=== PATIENT | male | born 1960 | race Caucasian/White ===

== ENCOUNTER → 2017-07-12 | Outpatient (CLI) | payer OTHER | LOC: M ADAMS 17:10 | PROVIDERS: ATTEND Physician Assistant | DX: M10.071 Idiopathic gout, right ankle and foot (principal) ==

== ENCOUNTER → 2018-03-25 | Outpatient (REF) | payer OTHER | LOC: M LAB REF 12:37 | DX: J02.9 Acute pharyngitis, unspecified (principal) | CPT/HCPCS: 87081 ==

== ENCOUNTER → 2019-05-18 | Outpatient (CLI) | payer OTHER ==
--- NOTE | 2019-05-18 19:34 | REP ---
Cervical spine series: Nine views: History: Neck pain. Findings: Cervical vertebral body heights are preserved. There is some straightening. Alignment is normal. Flexion/extension lateral views show no subluxation or instability. There is degenerative disc narrowing at C5-6 and C6-7 with early anterior osteophyte formation. Swimmer's lateral view shows no additional abnormality. AP and open mouth odontoid views are unremarkable. Oblique images demonstrate intact neural foramina and normally aligned facets bilaterally. Impression: Mild degenerative disc changes C5-6 and C6-7. Electronically Signed by Aaron Sterling MD 05/18/2019 07:37 P
== END ==
LOC: M ADAMS 16:40
PROVIDERS: ATTEND Physician Assistant
DX: M50.322 Other cervical disc degeneration at C5-C6 level (principal); M50.323 Other cervical disc degeneration at C6-C7 level

== ENCOUNTER → 2021-01-17 | Outpatient (CLI) | payer BC, OTHER, SELFPAY ==
--- NOTE | 2021-01-17 18:50 | REP ---
INDICATION: RIGHT SHOULDER PAIN. COMPARISON: None. TECHNIQUE: Three views FINDINGS: . three views right shoulder demonstrate normal alignment of the glenohumeral and acromioclavicular joints. Periarticular soft tissues are unremarkable. Mild AC joint hypertrophy and narrowing is seen. There is mild inferior glenoid spurring as well. IMPRESSION: Mild osteoarthritic changes. No acute bony abnormality. <Electronically signed by Hay Sterling > 01/17/21 [id number]
== END ==
LOC: M ADAMS 12:12
PROVIDERS: ATTEND Physician Assistant Medical
DX: M25.511 Pain in right shoulder (principal)